=== PATIENT | female | born 1990 | race Caucasian/White ===

== ENCOUNTER 2024-12-28 10:39 | Emergency (ER) | payer OTHER, SELFPAY ==
[2024-12-28 10:39] VITALS: BMI 32.0
[2024-12-28 10:40] VITALS: BP 117/76
--- NOTE | 2024-12-28 11:16 | ED.GENMED ---
History of Present Illness
General
Chief Complaint: Problems
Source: patient
Exam Limitations: none
Time Seen by Provider: 12/28/24 11:00
History of Present Illness
History of Present Illness:
34yo female currently 7 weeks based on LMP of 11/06/24 presenting for evaluation of vomiting. Patient has a history of hyperemesis gravidarum with her prior . Her DERRICK MAN prescribed her Diclegis 10-10mg 2 tablets at nighttime
which she has been taking. She missed her dose 2 nights ago because she went to sleep before she was able to take it. She woke up yesterday and has been vomiting continuously since then. She has only urinated once in the past 24 hours and was
sent to the ED for IV fluids. She denies any vaginal bleeding, abdominal pain, diarrhea. She has has initial OB ultrasound scheduled for 01/15/25.
Phy Exam
General Physical Exam
General Presentation: well appearing and no apparent distress
General Skin: warm and dry
General Habitus: normal
General Mental: alert
ENT Exam
ENT Exam: normocephalic
Cardiovascular Exam
Cardiovascular Exam: regular rate/rhythm
Pulmonary Exam
Pulmonary Exam: lungs clear, no respiratory distress, no rales, no crackles, no rhonchi and no wheezing
Gastrointestinal Exam
Gastrointestinal Exam: non tender, soft and non distended
Neurological Exam
Neurological Exam: alert
Mitch Coma Scale
Eye Opening: Spontaneous
Verbal Response: Oriented
Motor Response: Obeys Commands
GCS Total Score: 15
Skin Exam
Skin Exam: normal color and warm/dry
Psychiatric Exam
Psychiatric Exam: normal mood/affect
Course
Orders/Labs/Results
Orders:
Orders
12/28/24 11:30
Complete Blood Count/With Diff Urgent
Comprehensive Metabolic Panel Urgent
Magnesium Urgent
12/28/24 11:38
Diphenhydramine [Benadryl] 25 mg IV NOW STA
Metoclopramide [Reglan] 10 mg IV NOW STA
Abnormal Lab Results
12/28/24
11:30
Sodium 134 L mmol/L
(135-145)
12/28/24 11:30
12/28/24 11:30
Vital Signs
Initial and Last Documented VS:
Initial Vital Signs
Temp Pulse Resp BP Pulse Ox
98.3 F 76 16 117/76 99
12/28/24 10:40 12/28/24 10:40 12/28/24 10:40 12/28/24 10:40 12/28/24 10:40
Last Documented Vital Signs
Temp Pulse Resp BP Pulse Ox
98.2 F 68 16 110/68 99
12/28/24 13:03 12/28/24 14:36 12/28/24 14:36 12/28/24 14:36 12/28/24 14:36
Information
Weeks gestation: N/A
Location: N/A
MDM/Problems Addressed
Differential Diagnosis Includes:
34yoF here with n/v x 1 day after missing a dose of Diclegis. Currently 7 weeks . Hx of hyperemesis gravidarum with prior . No vag bleeding or pelvic pain. VSS. She is well-appearing in no distress. Differential diagnosis includes
but is not limited to: Morning sickness, hyperemesis gravidarum, dehydration, FAYE
Initial ED plan: Check CBC, CMP, and magnesium. IV Reglan, Benadryl, and 2L NSS bolus ordered.
*Pulse Oximetry
SaO2: 99
Oxygen Mode of Delivery: Room air
Patient hypoxic: no
*Critical Care Note
Total Time (30-74mins, 75-104mins- exclusive of procedures): Not Applicable
Update Note
Update Note:
Sodium is 134. Remainder of labs are unremarkable and renal function is normal. Patient given 2 L IV fluids and is feeling improved on reassessment. She was able to urinate while in the emergency department and is tolerating ice chips. She is
stable for discharge. Prescription provided for Reglan. She has an appointment with gynecology scheduled in 2 days. ED return precautions reviewed and she was discharged stable condition.
ED Attending Note
-
Portions of this chart may have been created with voice recognition software.� Occasional wrong word or��sound alike� substitutions may have occurred due to the inherent limitations of voice recognition software.
Discharge Plan
Departure
Patient Disposition: Home (Routine Discharge)
Date of Disposition: 12/28/24
Time of Disposition: 14:29
Patient with high blood pressure during this ER visit?: No
Discharge Problem:
Nausea and vomiting during
Instructions: Morning sickness - ED (DC)
Prescriptions:
New
metoclopramide HCl [Reglan] 10 mg tablet
10 mg PO Q6H PRN (Reason: nausea and vomiting) Qty: 20 0RF
No Action
doxylamine-pyridoxine (vit B6) [Diclegis] 10-10 mg Tablet,Delayed Release (Dr/Ec)
1 tab PO BID
Referrals:
NONE,* [Family Provider, Internal Medicine]
Activity Restrictions/Additional Instructions:
Continue taking Diclegis at nighttime. Take Reglan as needed for nausea. Drink small sips of water throughout the hour and eat a bland diet (bananas, rice, applesauce toast).
Please follow-up with OBGYN in 2 days as previously scheduled. Return to the ER with any new or worsening symptoms.
Interventions
Interventions:
*Risk Screen - Suicide Last Done: 12/28/24 12:56
*General Assessment Last Done: 12/28/24 11:26
*Neglect/Abuse Screening Last Done: 12/28/24 12:56
*ED- Fall Risk Assessment Last Done: 12/28/24 11:26
*Nursing Disposition Last Done: 12/28/24 14:36
ED-Female Genitourinary Assessment Last Done: 12/28/24 12:56
Discharge Date and Time
Discharge Date/Time: 12/28/24 14:36
Print Language: SIERRA LEONEAN
[2024-12-28 11:47] LABS: Hematocrit 38.1 % (37.0-47.0); Hemoglobin 13.1 g/dL (12.0-16.0); Mean Corp Hgb Conc. 34.4 g/dL (33.0-37.0); Mean Corpuscular Volume 89.6 fL (81.0-99.0); Nucleated Red Blood Cells % 0 %; Platelet Count 290 10^3/uL (130-400); Red Cell Dist. Width 12.0 % (11.5-14.5)
[2024-12-28] MEDS: BENADRYL 25 MG IV (12:04)
[2024-12-28] MEDS: REGLAN 10 MG IV (12:04)
[2024-12-28 12:14] LABS: ALT (SGPT) 17 U/L (0-35); AST (SGOT) 24 U/L (14-36); Albumin 4.3 g/dl (3.5-5.0); Alkaline Phosphatase 54 U/L (38-126); Blood Urea Nitrogen 11 mg/dl (7-17); Calcium 9.3 mg/dl (8.4-10.2); Carbon Dioxide 24 mmol/L (22-30); Chloride 104 mmol/L (98-107); Glucose 82 mg/dl (70-99); Magnesium 2.0 mg/dl (1.6-2.3); Potassium 3.9 mmol/L (3.5-5.1); Sodium 134 mmol/L (135-145); Total Protein 7.2 g/dl (6.3-8.2); eGFR > 60.00
[2024-12-28 13:00] VITALS: BP 111/47
[2024-12-28 13:03] VITALS: BP 111/47
[2024-12-28 14:36] VITALS: BP 110/68
== END 2024-12-28 14:36 | disposition home or self-care (01) ==
LOC: EMR 10:39
PROVIDERS: EMERGENCY PHYSICIAN Emergency Medicine
DX: O21.9 Vomiting of pregnancy, unspecified (principal); O09.521 Supervision of elderly multigravida, first trimester; Z3A.01 Less than 8 weeks gestation of pregnancy
CPT/HCPCS: 96374; 96375; 99284; 80053; 83735; 85025

== ENCOUNTER 2025-01-03 22:35 | Emergency (ER) | payer OTHER, SELFPAY ==
[2025-01-03 22:36] VITALS: BP 125/60
--- NOTE | 2025-01-03 23:04 | ED.GENMED ---
History of Present Illness
General
Chief Complaint: Problems
Source: patient
Exam Limitations: none
Time Seen by Provider: 01/03/25 23:00
Nursing documentation reviewed up to this point in time: agreed with
History of Present Illness
History of Present Illness:
34-year-old female female with past medical history of depression, ovarian cyst, depression, presents the ER today with concerns of nausea and vomiting that started at the beginning of her . She does have a history of
hyperemesis gravidarum in her prior but she has not been officially diagnosed this . She currently has been vomiting all day today and is not able to tolerate oral intake. Previous, she normally gets 1 episode of vomiting per
day and Dicleeges has helped reduce the symptoms. She takes 1 tablet at night. Then, she started have increase in her symptoms and was seen in our emergency department last week. She received Reglan and Benadryl through the IV as well as IV
fluids with helped her symptoms. She saw her PRESS SUPERVISOR at [facility] after that and they increased her Diclegis to twice daily which helped until this past evening. She called her EXAMINATION PROCTOR who advised Emergency Department evaluation for IV
fluids. Patient denies dysuria but notes some intermittent abdominal cramping at times. She denies any vaginal bleeding. She denies any fevers or chills.
Review of Systems
Review of Systems
All Other Systems: ROS reviewed and negative except as documented in HPI and ROS
Phy Exam
Physical Exam
Physical Exam:
General: Patient is well appearing and in no acute distress; non-toxic
Skin: Warm and dry, no rashes or lesions
Head: Normocephalic, atraumatic
Eyes: Sclera non-icteric. EOMs intact.
Cardiac: Regular rate and rhythm, no murmur
Peripheral Vascular: No lower extremity swelling or edema
Pulm: Normal respiratory effort
Abdomen: No abdominal tenderness to palpation
Neuro: CN II-XII intact, no focal neurologic deficits.
Psychiatric: Appropriate mood and affect.
Course
Orders/Labs/Results
Orders:
Orders
01/03/25 23:17
Urinalysis Reflex To Culture Urgent
Date Specimen was Collected: 01/04/25
Time Specimen was Collected: 05:10
US 1st Trimester Urgent
Comment:
Reason For Exam: pelvic pain
01/03/25 23:18
Lactated Ringers [Lr] 1,000 ml IV BOLUS
01/03/25 23:28
Beta HCG Quantitative Urgent
Is this a screen?: No
Complete Blood Count/With Diff Urgent
Comprehensive Metabolic Panel Urgent
Magnesium Urgent
01/03/25 23:36
Diphenhydramine [Benadryl] 12.5 mg IV NOW STA
Metoclopramide [Reglan] 10 mg IV NOW STA
01/04/25 02:10
Lactated Ringers [Lr] 1,000 ml IV BOLUS
01/04/25 05:50
Urine Microscopic Reflex Cult Urgent
Abnormal Lab Results
01/03/25 01/04/25
23:28 05:50
RBC 4.15 L 10^6/uL
(4.20-5.40)
Hct 36.4 L %
(37.0-47.0)
MCH 31.1 H pg
(27.0-31.0)
Absolute Neuts (auto) 7.0 H 10^3/uL
(1.4-6.5)
Absolute Monos (auto) 0.8 H 10^3/uL
(0.1-0.6)
Sodium 132 L mmol/L
(135-145)
Carbon Dioxide 20 L mmol/L
(22-30)
Creatinine 0.5 L mg/dL
(0.6-1.0)
Urine Ketones 2+ A
(Negative)
Urine Bacteria (Reflex) Few A
(Negative)
Urine Albumin (Reflex) 1+ A
(Neg - Trace)
01/03/25 23:28
01/03/25 23:28
Vital Signs
Initial and Last Documented VS:
Initial Vital Signs
Temp Pulse Resp BP Pulse Ox
98.2 F 79 18 125/60 100
01/03/25 22:36 01/03/25 22:36 01/03/25 22:36 01/03/25 22:36 01/03/25 22:36
Last Documented Vital Signs
Temp Pulse Resp BP Pulse Ox
98.2 F 71 18 103/54 98
01/03/25 22:36 01/04/25 07:29 01/04/25 07:29 01/04/25 07:29 01/04/25 07:29
Information
Weeks gestation: Weeks: (7)
Location: Location: (intrauterine)
MDM/Problems Addressed
Differential Diagnosis Includes:
Nausea and vomiting in , ectopic , hyperemesis gravidarum, viral syndrome
MDM/Problems Addressed:
34-year-old female female with past medical history of depression, ovarian cyst, depression, presents to the ER today with concerns of nausea and vomiting that started at the beginning of her . Initially controlled with
Diclegis, and Reglan, she had an episode today that became very severe and she cannot tolerate oral intake. She cannot take her as needed Reglan because of the vomiting. Today, patient had Reglan, Benadryl, and lactated Ringer's with improved her
symptoms. Now able to tolerate oral intake including water and food without any problems. Labs reviewed, no significant electrolyte derangement. CBC unremarkable. Urinalysis shows some ketones but no nitrites no leukocyte esterase no moderate
bacteria. Ultrasound confirms IUP with no evidence of subchorionic hemorrhage. Patient will be sent home with VITA Smith and follow-up with PRESS SUPERVISOR. Patient stable for discharge.
*Pulse Oximetry
SaO2: 100
Oxygen Mode of Delivery: Room air
Patient hypoxic: no
*Critical Care Note
Total Time (30-74mins, 75-104mins- exclusive of procedures): Not Applicable
Update Note
Update Note:
2:00 am-- I gave patient food, will trial PO intake. Will give another liter of LR
3:26 am-- Patient is able to tolerate oral fluids without nausea or vomiting. Awaiting urine sample. Still mild pelvic pain
Update, delay in urinalysis, patient unable to void has no urge. She was given additional IV fluids. She continues to tolerate oral intake and is drinking water without any difficulty. Patient states that she would like to be observed in the ER
for a bit longer to ensure she has no further episodes of vomiting. Will continue to monitor.
Update, patient able to obtain urine sample. Patient is no dysuria but in light of lower abdominal cramping patient experienced earlier, will check for signs of UTI.
ED Attending Note
-
Portions of this chart may have been created with voice recognition software.� Occasional wrong word or��sound alike� substitutions may have occurred due to the inherent limitations of voice recognition software.
Discharge Plan
Departure
Patient Disposition: Home (Routine Discharge)
Date of Disposition: 01/04/25
Time of Disposition: 07:24
Patient with high blood pressure during this ER visit?: No
Condition: Good
Discharge Problem:
Nausea and vomiting in
Instructions: symptoms, Nausea and vomiting in adults
Prescriptions:
New
ondansetron 4 mg tablet,disintegrating
4 mg PO Q6H PRN (Reason: nausea and vomiting) Qty: 10 0RF
No Action
doxylamine-pyridoxine (vit B6) [Diclegis] 10-10 mg Tablet,Delayed Release (Dr/Ec)
1 tab PO BID
metoclopramide HCl [Reglan] 10 mg tablet
10 mg PO Q6H PRN (Reason: nausea and vomiting) Qty: 20 0RF
Referrals:
Neha Casper MD [Active, Gynecology] - Call in 1-3 days for appt
NONE,* [Family Provider, Internal Medicine]
Activity Restrictions/Additional Instructions:
Under the tongue Zofran has been sent to your pharmacy. You can dissolve 1 tablet under the tongue every 6 hours as needed. Please call your PRESS SUPERVISOR to schedule follow-up appointment.
PLEASE RETURN TO ER SHOULD YOU DEVELOP INTRACTABLE NAUSEA OR VOMITING, INABILITY TO TOLERATE P.O. INTAKE, DIZZINESS, LIGHTHEADEDNESS, VAGINAL BLEEDING, PERSISTENT ABDOMINAL PAIN, OR ANY OTHER SIGNS OR SYMPTOMS WORRISOME TO YOU.
Interventions
Interventions:
*Risk Screen - Suicide Last Done: 01/03/25 22:36
*General Assessment Last Done: 01/03/25 22:36
*Neglect/Abuse Screening Last Done: 01/03/25 22:36
*ED- Fall Risk Assessment Last Done: 01/04/25 07:33
*ED COVID-19 Vaccine History Last Done: 01/03/25 22:36
*Nursing Disposition Last Done: 01/04/25 07:33
ED-Female Genitourinary Assessment Last Done: 01/03/25 23:10
Discharge Date and Time
Discharge Date/Time: 01/04/25 07:29
Print Language: WELSH
[2025-01-03 23:18] VITALS: BMI 29.0
[2025-01-03] MEDS: LR 1000 IV (23:35)
[2025-01-03 23:37] LABS: Hematocrit 36.4 % (37.0-47.0); Hemoglobin 12.9 g/dL (12.0-16.0); Mean Corp Hgb Conc. 35.4 g/dL (33.0-37.0); Mean Corpuscular Volume 87.7 fL (81.0-99.0); Nucleated Red Blood Cells % 0 %; Platelet Count 291 10^3/uL (130-400); Red Cell Dist. Width 12.1 % (11.5-14.5)
[2025-01-03] MEDS: REGLAN 10 MG IV (23:41)
[2025-01-03] MEDS: BENADRYL 12.5 MG IV (23:46)
[2025-01-04 00:03] LABS: ALT (SGPT) 23 U/L (0-35); AST (SGOT) 23 U/L (14-36); Albumin 4.0 g/dl (3.5-5.0); Alkaline Phosphatase 53 U/L (38-126); Blood Urea Nitrogen 9 mg/dl (7-17); Calcium 9.3 mg/dl (8.4-10.2); Carbon Dioxide 20 mmol/L (22-30); Chloride 105 mmol/L (98-107); Estimated Creatinine Clearance > 125 ml/min; Glucose 87 mg/dl (70-99); Magnesium 1.8 mg/dl (1.6-2.3); Potassium 3.8 mmol/L (3.5-5.1); Sodium 132 mmol/L (135-145); Total Protein 7.1 g/dl (6.3-8.2); eGFR > 60.00
[2025-01-04 00:45] VITALS: BP 105/54
[2025-01-04 00:52] LABS: Beta HCG Quantitative 251670.00 mIU/ml
[2025-01-04] MEDS: LR 1000 IV (02:13)
[2025-01-04 03:15] VITALS: BP 97/54
[2025-01-04 06:32] LABS: Urine Character Clear (Clear)
[2025-01-04 06:46] LABS: Urine Red Blood Cell None Seen /HPF (0-2); Urine Squamous Cell 26-30 /LPF (Few); Urine White Cell 0-2 /HPF (0-5)
[2025-01-04 07:29] VITALS: BP 103/54
== END 2025-01-04 07:29 | disposition home or self-care (01) ==
LOC: EMR 22:35
PROVIDERS: Physician Assistant; EMERGENCY PHYSICIAN Student in an Organized Health Care Education/Training Program
DX: O21.9 Vomiting of pregnancy, unspecified (principal); O26.891 Other specified pregnancy related conditions, first trimester; O09.521 Supervision of elderly multigravida, first trimester; O99.341 Other mental disorders complicating pregnancy, first trimester; F32.A Depression, unspecified; Z3A.01 Less than 8 weeks gestation of pregnancy
CPT/HCPCS: 99284; 96374; 96375; 96361 ×3; 76801; 80053; 81003; 81015; 83735; 84702; 85025

== ENCOUNTER 2025-01-24 11:51 | Emergency (ER) | payer BC, SELFPAY ==
[2025-01-24 11:58] VITALS: BP 142/82
[2025-01-24] MEDS: REGLAN 10 MG IV (13:00)
[2025-01-24] MEDS: BENADRYL 25 MG IV (13:00)
[2025-01-24] MEDS: NSS 1000 IV (13:01)
[2025-01-24 13:03] LABS: Hematocrit 37.0 % (37.0-47.0); Hemoglobin 12.4 g/dL (12.0-16.0); Mean Corp Hgb Conc. 33.5 g/dL (33.0-37.0); Mean Corpuscular Volume 93.0 fL (81.0-99.0); Nucleated Red Blood Cells % 0 %; Platelet Count 265 10^3/uL (130-400); Red Cell Dist. Width 12.2 % (11.5-14.5)
[2025-01-24 13:28] LABS: ALT (SGPT) 23 U/L (0-35); AST (SGOT) 27 U/L (14-36); Albumin 3.7 g/dl (3.5-5.0); Alkaline Phosphatase 32 U/L (38-126); Blood Urea Nitrogen 8 mg/dl (7-17); Calcium 9.1 mg/dl (8.4-10.2); Carbon Dioxide 24 mmol/L (22-30); Chloride 106 mmol/L (98-107); Glucose 99 mg/dl (70-99); Potassium 4.9 mmol/L (3.5-5.1); Sodium 134 mmol/L (135-145); Total Protein 6.5 g/dl (6.3-8.2); eGFR > 60.00
[2025-01-24] MEDS: D5/0.9% SODIUM CHLORIDE 1000 IV (14:00)
--- NOTE | 2025-01-24 14:44 | ED.GENMED ---
History of Present Illness
General
Chief Complaint: Problems
Source: patient
Exam Limitations: none
Time Seen by Provider: 01/24/25 12:17
History of Present Illness
History of Present Illness:
Note:
CHIEF COMPLAINT(S)
Nausea and vomiting during .
HISTORY OF PRESENT ILLNESS
The patient is a 34-year-old female, currently at 11 weeks of gestation in her . She presents with persistent nausea and vomiting, experiencing the symptoms throughout the day. The patient mentions that she had a similar experience during
her previous , lasting until around 28 weeks. She has been taking Doxylamine-pyridoxine (Diclegis) in the morning and evening to help manage the symptoms. Additionally, she sometimes takes Metoclopramide (Reglan) when the symptoms are more
severe, although she notes that the effectiveness varies; for instance, vomiting persisted despite taking Reglan.
Yesterday, the patient experienced a particularly severe episode of vomiting and was unable to stay hydrated, expressing notable frustration with the situation. She has not experienced any fever, abdominal pain, bleeding, or burning during
urination. The patient shared concerns about the impact of COVID-19 during her previous , which affected her decisions on seeking hospital care.
During this visit, she expressed ongoing nausea and concerns over her hydration status and electrolyte balance. A plan to administer intravenous fluids with dextrose and Metoclopramide was discussed to alleviate the symptoms.
MEDICATIONS
- Doxylamine-pyridoxine (Diclegis)
- Metoclopramide (Reglan)
- Zoloft 25 mg daily
REVIEW OF SYSTEMS
- Gastrointestinal: Persistent nausea and vomiting
- Genitourinary: No dysuria, urination decreased
PHYSICAL EXAM
General: Alert, no acute distress.
Skin: Warm, dry.
Head: Normocephalic, atraumatic.
Neck: Supple, trachea midline.
Eye Ears, nose, mouth and throat: Oral mucosa moist.
Cardiovascular: Normal peripheral perfusion, no edema.
Respiratory: Respirations are non-labored.
Gastrointestinal: Abdomen nondistended, no tenderness on palpation.
Back: Normal range of motion, normal alignment.
Musculoskeletal: Normal range of motion, normal strength.
Neurological: Alert and oriented to person, place, time, and situation, no focal neurological deficit.
Psychiatric: Cooperative, appropriate mood and affect.
PLAN
The plan includes administering intravenous fluids with normal saline and dextrose, along with Metoclopramide to manage nausea and improve hydration status. Monitoring of electrolytes is also advised. The patient may also receive Diphenhydramine
(Benadryl) if needed to assist with antiemetic support. Caution with concurrent use of Sertraline (Zoloft) and Ondansetron (Zofran) was advised, as there is a preference to manage symptoms with Metoclopramide due to less frequent adverse
interactions.
DIFFERENTIAL DIAGNOSIS
The Differential Diagnosis includes, in no particular order and is not limited to:
1. Hyperemesis gravidarum
2. Gastroenteritis
3. Peptic ulcer disease
4. Cholecystitis
5. Pancreatitis
6. Hepatitis
7. Urinary tract infection
8. Migraine-associated nausea and vomiting
9. Diabetic gastroparesis
10. -associated gastroesophageal reflux disease
CARE-UPDATE
01/24/25 - 14:16
The patient reports feeling better and has shown improvement. Administer an additional liter of IV fluids containing dextrose.
Disposition:
SUMMARY OF ENCOUNTER
A 34-year-old female presented with hyperemesis gravidarum. She received intravenous fluids and antiemetic treatment during her emergency department visit. The patient reported significant improvement in symptoms and feels better after the
treatment. She will continue to manage symptoms at home with metoclopramide (Reglan).
ASSESSMENT
The patient is experiencing hyperemesis gravidarum, a severe form of nausea and vomiting during .
PLAN
The plan is to continue managing her symptoms of hyperemesis gravidarum at home with metoclopramide as needed for nausea and vomiting.
PATIENT EDUCATION AND COUNSELING
The patient was informed about the condition, reassured about her current improved status, and advised to stay hydrated. Follow-up with her whiskey filterer was recommended for ongoing management.
FOLLOW-UP INSTRUCTIONS
Follow up with obstetrics for ongoing management of her condition.
MEDICAL DECISION MAKING
- Complexity of Data Reviewed: Chronic conditions affecting care - . Differential diagnosis considers:
1. Hyperemesis gravidarum
2. Gastroenteritis
3. Peptic ulcer disease
4. Cholecystitis
5. Pancreatitis
6. Hepatitis
7. Urinary tract infection
8. Migraine-associated nausea and vomiting
9. Diabetic gastroparesis
10. -associated gastroesophageal reflux disease
- Data:
Category 1
- Filed under external records: Outpatient management plans were reviewed.
Category 2
- My independent interpretation: None mentioned.
Category 3
- No discussions with other healthcare providers were documented.
- Risk:
Consideration of Admission/Observation: Escalation of care including admission/observation was considered given the complexity and risk of the patients presenting complaint. However, ultimately I feel the patient is safe for outpatient management
with close follow up. Reasoning: Work-up reassuring, does not reveal any acute life/organ threatening processes, patients symptoms well controlled upon reevaluation, reexamination is reassuring, vitals are stable, patient agreeable with discharge,
reliable for follow-up.
DIAGNOSIS
Hyperemesis Gravidarum (O21.0)
Phy Exam
Physical Exam
Physical Exam:
.
Course
Orders/Labs/Results
Orders:
Orders
01/24/25 12:32
Urinalysis Reflex To Culture Urgent
Date Specimen was Collected: 01/24/25
Time Specimen was Collected: 12:44
0.9% Sodium Chloride 1000 ml [Nss] 1,000 ml IV BOLUS
01/24/25 12:35
Diphenhydramine [Benadryl] 25 mg IV NOW STA
Metoclopramide [Reglan] 10 mg IV NOW STA
01/24/25 12:56
Complete Blood Count/With Diff Urgent
Comprehensive Metabolic Panel Urgent
01/24/25 13:00
Dextrose 5%/0.9%Sodchl 1000 ml [D5/0.9% Sodium Chloride] 1,000 ml IV 500 mls/hr
Abnormal Lab Results
01/24/25
12:56
RBC 3.98 L 10^6/uL
(4.20-5.40)
MCH 31.2 H pg
(27.0-31.0)
Absolute Neuts (auto) 7.4 H 10^3/uL
(1.4-6.5)
Absolute Monos (auto) 0.7 H 10^3/uL
(0.1-0.6)
Lymphocytes % 18.5 L %
(20.5-51.1)
Sodium 134 L mmol/L
(135-145)
Creatinine 0.5 L mg/dL
(0.6-1.0)
Alkaline Phosphatase 32 L U/L
(38-126)
01/24/25 12:56
01/24/25 12:56
Vital Signs
Initial and Last Documented VS:
Initial Vital Signs
Temp Pulse Resp BP Pulse Ox
97.5 F 86 16 142/82 96
01/24/25 11:58 01/24/25 11:58 01/24/25 11:58 01/24/25 11:58 01/24/25 11:58
Last Documented Vital Signs
Temp Pulse Resp BP Pulse Ox
97.5 F 69 18 98/50 99
01/24/25 11:58 01/24/25 15:07 01/24/25 15:07 01/24/25 15:07 01/24/25 15:07
Information
Weeks gestation: N/A
Location: N/A
*Pulse Oximetry
SaO2: 96
Oxygen Mode of Delivery: Room air
Patient hypoxic: no
*Critical Care Note
Total Time (30-74mins, 75-104mins- exclusive of procedures): Not Applicable
ED Attending Note
-
Portions of this chart may have been created with voice recognition software.� Occasional wrong word or��sound alike� substitutions may have occurred due to the inherent limitations of voice recognition software.
Discharge Plan
Departure
Patient Disposition: Home (Routine Discharge)
Date of Disposition: 01/24/25
Time of Disposition: 15:29
Patient with high blood pressure during this ER visit?: No
Discharge Problem:
Hyperemesis gravidarum
Instructions: Hyperemesis Gravidarum (DC)
Prescriptions:
No Action
doxylamine-pyridoxine (vit B6) [Diclegis] 10-10 mg Tablet,Delayed Release (Dr/Ec)
1 tab PO BID
metoclopramide HCl [Reglan] 10 mg tablet
10 mg PO Q6H PRN (Reason: nausea and vomiting) Qty: 20 0RF
ondansetron 4 mg tablet,disintegrating
4 mg PO Q6H PRN (Reason: nausea and vomiting) Qty: 10 0RF
Referrals:
UNKNOWN - PT DOES,NOT KNOW [Family Provider]
Activity Restrictions/Additional Instructions:
Please maintain proper hydration and eat small meals frequently. Return immediately for intractable vomiting, vaginal bleeding of any kind, abdominal pain, fevers or any other concerns please see your whiskey filterer in the next 1 week for follow-up
and reevaluation.
Interventions
Interventions:
*Risk Screen - Suicide Last Done: 01/24/25 11:58
*General Assessment Last Done: 01/24/25 13:12
*Neglect/Abuse Screening Last Done: 01/24/25 11:58
*ED COVID-19 Vaccine History Last Done: 01/24/25 13:12
*ED Influenza Vaccine History Last Done: 01/24/25 13:12
ED-Female Genitourinary Assessment Last Done: 01/24/25 15:09
Discharge Date and Time
Print Language: MAORI
[2025-01-24 15:07] VITALS: BP 98/50
[2025-01-24 16:17] LABS: Urine Character Slightly Cloudy (Clear)
== END 2025-01-24 16:08 | disposition home or self-care (01) ==
LOC: EMR 11:51
PROVIDERS: EMERGENCY PHYSICIAN Emergency Medicine
DX: O21.0 Mild hyperemesis gravidarum (principal); O09.521 Supervision of elderly multigravida, first trimester; Z3A.11 11 weeks gestation of pregnancy
CPT/HCPCS: 96374; 96375; 96361; 99284; 80053; 81003; 85025